=== PATIENT | female | born 1960 | race Caucasian/White ===

== ENCOUNTER 2017-07-29 06:38 | Day surgery (SDC) | payer OTHER ==
[2017-07-29] MEDS ORDERED: PROPOFOL/EMULSION 500 MG/50 ML BOTTLE IV ONE (07:44)
[2017-07-29] MEDS ORDERED: INDOMETHACIN 50 MG SUPP PR PRN (07:46)
--- NOTE | 2017-07-29 07:46 | PDGENHP ---
History & Physical Chief Complaint: colonic polyps History of Present Illness: 56 year old female presents for surveillance colonoscopy. Hx of complex adenomas Pertinent Past, Social, Family History: PMHx; hypothyroidism, hyperlipidemia. FaMHx: polyps Relevant Physical Exam: HEENT: anicteric. CV:RRR +s1s2. Lungs: CTAB No w/r/r. Abd: soft, nt, nd, + BS Cardiorespiratory Assessment: ASA 2. Mall 2
[2017-07-29] MEDS ORDERED: LIDOCAINE 1% 2 ML INJ ID PRN (07:47)
[2017-07-29] MEDS ORDERED: fentaNYL 100 MCG/2 ML INJ IVP PRN (07:53)
[2017-07-29] MEDS ORDERED: DEXAMETHASONE 4 MG/ML VIAL IVP PRN (07:53)
[2017-07-29] MEDS ORDERED: ONDANSETRON 4 MG/2 ML VIAL IVP PRN (07:53)
[2017-07-29] MEDS ORDERED: NALOXONE HCL 0.4 MG/ML INJ IVP PRN (07:53)
[2017-07-29] MEDS ORDERED: LR 500 ML IV PRN (07:53)
[2017-07-29] MEDS ORDERED: MEPERIDINE 25 MG/ML SYR IVP PRN (07:53)
[2017-07-29] MEDS ORDERED: ALBUTEROL 3 ML DEYVIAL IH PRN (07:53)
--- NOTE | 2017-07-29 07:53 | PDANEPAE ---
ANE Past Medical History - Cardiovascular History Hx Hypertension: No Hx Arrhythmias: No Hx Chest Pain: No Hx Coronary Artery / Peripheral Vascular Disease: No Hx CHF / Valvular Disease: No Hx Palpitations: No - Pulmonary History Hx COPD: No Hx Asthma/Reactive Airway Disease: No Hx Recent Upper Respiratory Infection: No Hx Oxygen in Use at Home: No Hx Sleep Apnea: No Sleep Apnea Screening Result - Last Documented: Negative Pulmonary History Comment: CHILDHOOD ASTHMA FINE NOW - Neurologic History Hx Cerebrovascular Accident: No Hx Seizures: No Hx Dementia: No - Endocrine History Hx Diabetes: No Endocrine History Comment: MG - Renal History Hx Renal Disorders: No - Liver History Hx Hepatic Disorders: No - Neurological & Psychiatric Hx Hx Neurological and Psychiatric Disorders: No - Cancer History Hx Cancer: No - Congenital Disorder History Hx Congenital Disorders: No - GI History Hx Gastrointestinal Disorders: Yes Gastrointestinal History Comment: PREV POLYP REM. HIATAL HERNIA. OCC HEARTBURN ON RX UNTIL 2 WEEKS AGO - Other Health History Other Health History: ORTHOSTATIC DIZZINESS - Chronic Pain History Chronic Pain: No - Surgical History Prior Surgeries: COLONOSCOPY-REMVL POLYP. . REMVL LIPOMA RT ARM/LT KNEE ANE Review of Systems Review of Systems: - Exercise capacity METS (RN): 4 METS ANE Patient History - Allergies Allergies/Adverse Reactions: Milk Containing Products [dairy] Allergy (Verified 07/28/17 17:19) Penicillins Allergy (Verified 07/28/17 17:18) Rash - Home Medications Home Medications: SIMVASTATIN HS 07/28/17 [Last Taken 07/28/17 23:30] Synthroid DAILY06 07/28/17 [Last Taken 07/29/17 05:30] - NPO status NPO Since - Liquids (Date): 07/29/17 NPO Since - Liquids (Time): 03:00 NPO Since - Solids (Date): 07/28/17 NPO Since - Solids (Time): 08:00 - Smoking Hx Smoking Status: Never smoked ANE Labs/Vital Signs - Vital Signs Blood Pressure: 104/74 Heart Rate: 77 Respiratory Rate: 20 O2 Sat (%): 96 Height: 157.48 cm Weight: 55.792 kg ANE Physical Exam - Airway Neck exam: FROM Mallampati Score: Class 1 Mouth exam: normal dental/mouth exam - Pulmonary Pulmonary: no respiratory distress, no rales or rhonchi, clear to auscultation - Cardiovascular Cardiovascular: regular rate and rhythym, no murmur, rub, or gallop, pulses symmetric bilaterally - ASA Status ASA Status: II ANE Anesthesia Plan Anesthesia Plan: GA with mask, MAC
[2017-07-29] MEDS ORDERED: NS 500 ML IV SCH (08:00)
[2017-07-29] MEDS ORDERED: LIDOCAINE 2% 5 ML SDV ONE (08:03)
[2017-07-29 08:19] VITALS: PULSE 75
--- NOTE | 2017-07-29 08:26 | POSTANESTH ---
Post Anesthetic Evaluation Cardiovascular Status: Normal, Stable Respiratory Status: Normal, Stable Level of Consciousness/Mental Status: Mildly Sleepy, Arousable Pain Control: Adequate, Prn Tx Ordered Nausea/Vomiting Control: Adequate, Prn Tx Ordered Complications Possibly Related to Anesthesia: None Noted
--- NOTE | 2017-07-29 08:29 | GIREPORT ---
[facility] Surgical Services - Endoscopy Department Patient Name: Ginger Ray Procedure Date: 07/29/2017 7:44 AM Patient Type: Outpatient Attending MD/ ER Physician: Jean Pierre Akhtar MD Procedure: Colonoscopy Indications: High risk colon cancer surveillance: Personal history of colonic polyps Patient Profile: 56 year old female with a history of complex polyps presents for surveillance colonoscopy. Providers: Jean Pierre Akhtar MD Medicines: Monitored Anesthesia Care Complications: No immediate complications. Estimated blood loss: Minimal. Description of Procedure: After obtaining informed consent, the scope was passed under direct vision. Throughout the proce dure, the patient's blood pressure, pulse, and oxygen saturations were monitored continuously. The Colonoscope was introduced through the anus and advanced to the cecum, identified by appendiceal orifice and ileocecal valve. The entire colon was well visualized. Findings: The perianal and digital rectal examinations were normal. Pertinent negatives include no palpabl e rectal lesions. A 3 mm polyp was found in the ascending colon. The polyp was sessile. The polyp was removed with a cold biopsy forceps. Resection and retrieval were complete. Estimated Blood Loss: Estimated blood loss was minimal. Post Op Diagnosis: - One 3 mm polyp in the ascending colon, removed with a cold biopsy forceps. Resected and retrie jazmyn. Recommendation: - Discharge patient to home (with escort). - Resume previous diet. - Continue present medications. - Repeat colonoscopy in 3 years for surveillance dependent on biopsy results.. - Thank you for allowing me to participate in the care Attending Participation: I personally performed the entire procedure. Jean Pierre Akhtar MD Jean Pierre Akhtar MD 07/29/2017 8:29:10 AM Number of Addenda: 0 Note Initiated On: 07/29/2017 7:44 AM Total Procedure Duration Time 0 hours 17 minutes 2 seconds [email or web address]
[2017-07-29 08:49] VITALS: RESP 14
[2017-07-29 09:34] VITALS: TEMP 97.3
[2017-07-29 09:58] VITALS: BP 91/61; O2SAT 100
== END 2017-07-29 09:20 | disposition home or self-care (01) ==
LOC: FSGY 06:38
PROVIDERS: ATTEND Internal Medicine Gastroenterology
PROC: 0DBK8ZX Excision of Ascending Colon, Via Natural or Artificial Opening Endoscopic, Diagnostic (ICD-10-PCS; principal; 2017-07-29 08:15)
DX: Z12.11 Encounter for screening for malignant neoplasm of colon (principal); D12.2 Benign neoplasm of ascending colon; E03.9 Hypothyroidism, unspecified; E78.5 Hyperlipidemia, unspecified; Z86.010 Personal history of colon polyps; Z83.71 Family history of colonic polyps
CPT/HCPCS: J2704

== ENCOUNTER → 2017-10-16 | Outpatient (CLI) | payer OTHER | LOC: FIMAGING 08:02 | PROVIDERS: ATTEND Advanced Practice Midwife | DX: Z12.31 Encounter for screening mammogram for malignant neoplasm of breast (principal) | CPT/HCPCS: G0202 ==

== ENCOUNTER → 2018-10-18 | Outpatient (CLI) | payer OTHER | LOC: FIMAGING 07:59 | PROVIDERS: ATTEND Family Medicine | DX: Z12.31 Encounter for screening mammogram for malignant neoplasm of breast (principal) ==

== ENCOUNTER → 2018-11-03 | Outpatient (CLI) | payer OTHER | END | disposition home or self-care (01) | LOC: FIMAGING 14:09 | PROVIDERS: ATTEND Family Medicine | DX: R92.8 Other abnormal and inconclusive findings on diagnostic imaging of breast (principal) ==

== ENCOUNTER → 2019-01-12 | Outpatient (CLI) | payer OTHER | LOC: FIMAGING 13:12 | PROVIDERS: ATTEND Family Medicine | DX: Z13.820 Encounter for screening for osteoporosis (principal); M81.0 Age-related osteoporosis without current pathological fracture; Z78.0 Asymptomatic menopausal state; Z79.899 Other long term (current) drug therapy ==